=== PATIENT | female | born 1995 | race Caucasian/White ===

== ENCOUNTER 2016-10-26 14:57 | Emergency (ER) | payer OTHER ==
[~2016-10-26] VITALS: Ht 160 cm; Wt 59.7 kg
[2016-10-26 15:01] VITALS: TEMP 36.7; Ht 160 cm; Wt 59.7 kg
[2016-10-26] MEDS ORDERED: TRAMADOL HCL 50 MG TAB PO STA (15:21)
[2016-10-26] MEDS ORDERED: ACETAMINOPHEN 500 MG TAB PO STA (15:21)
[2016-10-26] MEDS ORDERED: BCPILLS PO (15:29)
[2016-10-26] MEDS ORDERED: ACET-1256 PO (15:29)
--- NOTE | 2016-10-26 15:42 | DIAGNOSTIC IMAGING REPORT ---
HEAD CT NONCONTRAST CT DOSE: 537.48 mGy.cm HISTORY: Headaches. Worsening concusion symptoms TECHNIQUE: Multiaxial CT images of the head were performed without the use of intravenous contrast. Automated exposure control was utilized for this study. Comparison: None. Findings: The paranasal sinuses and mastoid air cells are clear. The calvarium and skull base are intact. The ventricles and sulci are within normal limits. There is no mass, hematoma, midline shift, or acute infarct. Impression: No acute intracranial abnormality. Electronically signed by: Wayne Granger M.D. 10/26/2016 3:41 PM Dictated Date/Time: 10/26/2016 3:37 PM
[2016-10-26] MEDS ORDERED: ONDA4TAB10 SL (16:31)
[2016-10-26] MEDS ORDERED: TRAM-10 PO (16:31)
[2016-10-26 16:44] VITALS: BP 124/63; PULSE 70; O2SAT 98
--- NOTE | 2016-10-26 16:57 | EMERGENCY ROOM VISIT NOTE ---
History First contact with patient: 15:04 Chief Complaint: HEAD INJURY (MINOR) Stated Complaint: CONCUSSION, HEADACHE, NAUSEA,BLURRY VISION History of Present Illness The patient is a 21 year old female who presents to the Emergency Room with complaints of persistent and worsening concussion symptoms. The patient reports that she was walking into her bedroom last Friday, tripped over clothing and fell into her wooden bedpost. She had no loss of consciousness. The patient reports that she very quickly developed a global headache with nausea. The patient reports that she is very dizzy now at the end of the semester, and had several presentations this past week. The patient did not engage in any significant strenuous activities. She slept for approximately 18 hours yesterday afternoon without any improvement of her symptoms. She reports nausea and vomiting. She denies any neck or back pain. She has not taken any medicine today for her discomfort. She was seen at the [facility] urgent care center and transferred here this afternoon for further workup and possible head CT. The patient rates her headache a 7 out of 10. Review of Systems 10 system review was performed and was negative except for pertinent positives and negatives as indicated in history of present illness Past Medical/Surgical History Medical Problems: (1) Lumbar pain Surgical Problems: (1) No history of previous surgery Family History No significant family history Social History Smoking Status: Never Smoker Alcohol Use: occasionally Marital Status: single Occupation Status: [employer] student Current/Historical Medications Scheduled Acetaminophen (Tylenol), 1,000 MG PO PRN UD Control Pills ( Control Pills), 1 TAB PO DAILY Ondasetron Odt (Zofran Odt), 4 MG SL Q6H Scheduled PRN Tramadol (Ultram), 1-2 TAB PO Q4H PRN for Pain Allergies Coded Allergies: No Known Allergies (Unverified , 10/26/16) Physical Exam Vital Signs Date Time Temp Pulse Resp B/P Pulse Ox O2 Delivery O2 Flow Rate FiO2 10/26/16 16:44 70 124/63 98 10/26/16 15:04 18 10/26/16 15:01 36.7 84 20 122/64 98 Room Air Physical Exam CONSTITUTIONAL: Healthy and well nourished. Alert and oriented X 3 with positive affect. GCS 15. HEENT: Normocephalic, atraumatic. Pupils equal, round and reactive. No subconjunctival hemorrhage, epistaxis, hemotympanum, raccoon's eyes or Escalante sign. No facial bone tenderness to palpation. OROPHARYNX: No dental trauma or other intraoral injuries appreciated. NECK: Full active range of motion without discomfort. RESPIRATORY: Clear to auscultation bilaterally with no wheezing, crackles, rhonchi or stridor. CARDIOVASCULAR: Regular rate and rhythm with no murmurs, rubs or gallops. MUSCULOSKELETAL: Full range of motion of all joints without discomfort. Equal hand shuttle fixer bilaterally. INTEGUMENTARY: No rash or other significant dermatologic conditions noted. NEUROLOGIC: Cranial nerves II-XII grossly intact. No focal neurologic deficits noted. Normal finger to nose test. Negative pronator drift. Normal fast alternating hand movements. No ataxia with ambulation. Negative Romberg sign. Medical Decision & Procedures ER Provider Diagnostic Interpretation: Noncontrast CT of the head does not show any acute fracture or intracranial bleed. Radiologist report is as follows: HEAD CT NONCONTRAST CT DOSE: 537.48 mGy.cm HISTORY: Headaches. Worsening concussion symptoms TECHNIQUE: Multiaxial CT images of the head were performed without the use of intravenous contrast. Automated exposure control was utilized for this study. Comparison: None. Findings: The paranasal sinuses and mastoid air cells are clear. The calvarium and skull base are intact. The ventricles and sulci are within normal limits. There is no mass, hematoma, midline shift, or acute infarct. Impression: No acute intracranial abnormality. Medications Administered Medications (Trade) Dose Ordered Sig/Jostin Route Start Time Stop Time Status Last Admin Dose Admin Acetaminophen (Tylenol Tab) 1,000 mg NOW STAT PO 10/26/16 15:21 10/26/16 15:22 DC 10/26/16 15:26 1,000 MG Tramadol HCl (Ultram Tab) 50 mg ONE STAT PO 10/26/16 15:21 10/26/16 15:22 DC 10/26/16 15:25 50 MG ED Course Patient history and physical exam were performed. Nurse's notes were reviewed. Vital signs were reviewed and were normal. I did discuss concussion workup, including conservative management and performing a head CT to rule out intracranial bleed. I did discuss the risks of radiation exposure. Based on the fact that the patient's symptoms are progressively worsening, the patient and mother agreed that a head CT is warranted. The patient was administered Tylenol 1 g and Ultram [address] A noncontrast CT of the head was performed and was normal. The patient was provided a concussion handout. She was encouraged to rest for now. She was given a note for her professors for testing schedule flexibility and accommodation. She was encouraged to follow-up with [facility] as needed for further assistance. She was provided prescriptions for Ultram and Zofran ODT. The patient was encouraged to return to the emergency department for any progressively worsening symptoms. The patient was happy with plan of care, voiced understanding of all discharge instructions, and rated her discomfort a 4 out of 10 at the time of discharge. Medical Decision Impression Primary Impression: Concussion Departure Information Prescriptions Ondasetron Odt (ZOFRAN ODT) 4 Mg Tab 4 MG SL Q6H for Nausea, #15 TAB Prov: Weston Scott PA 10/26/16 Tramadol (Ultram) 50 Mg Tab 1-2 TAB PO Q4H Y for Pain, #20 TAB For Initial Treatment Prov: Weston Scott PA 10/26/16 Patient Instructions [facility] Problem Qualifiers Primary Impression: Concussion Encounter type: initial encounter Loss of consciousness presence/duration: without LOC Qualified Codes: S06.0X0A - Concussion without loss of consciousness, initial encounter
== END 2016-10-26 16:45 | disposition home or self-care (01) ==
LOC: C.EDB 15:00 → C.EDD 16:45
DX: S06.0X0A Concussion without loss of consciousness, initial encounter (principal); W01.0XXA Fall on same level from slipping, tripping and stumbling without subsequent striking against object, initial encounter